=== PATIENT | male | born 1955 ===

== ENCOUNTER 2025-10-20 11:55 | Emergency (ER) | payer MEDICARE ==
[~2025-10-20] VITALS: Ht 177.8 cm; Wt 65.7 kg
[2025-10-20 12:10] VITALS: TEMP 98.3
--- NOTE | 2025-10-20 12:51 | Physician Documentation ---
History of Present Illness ~ Chief Complaint: Medical Clearance Stated Complaint: MED CLEARANCE Time Seen by MD: 12:15 OK to notify your PCP?: Yes Source: patient Mode of Arrival: POV Exam Limitations: no limitations HPI 70-year-old male who is here to get clearance to go to [facility]. He states he was already at [facility] earlier today and they recommended that he be seen here and evaluated so that he can skip going to a detox facility. Patient brought the handout from [facility] which has written on it to ask if we can clear him. Patient's last drink of alcohol was three days ago. He states prior to this he had a single drink and then he was sober for a few days as well. He denies any history of seizures. He denies hallucinations, delirium, nausea or vomiting. He states he has a slight tremor but otherwise does not notice any symptoms. Tetanus within 5 years?: Yes Medication Reconciliation Allergies: Coded Allergies: No Known Allergies (Unverified , 10/20/25) Past Medical History Past Medical History: No Pertinent History Past Surgical History: noncontributory Alcohol Use: Heavy Lives In: Home Review of Systems All Other Systems at this time: Reviewed and Negative Physical Exam Vital Signs: Temperature: 98.3, Source: Oral, Heart Rate: 60, Respiratory Rate: 19, BP: 110/73, Pulse Oximetry: 98, Weight: 65.700 Oxygen Flow Rate: 0 Physical Exam General Appearance: Alert, WD/WN. NAD. Good eye contact. thought process is appropriate. HEENT: NCAT, PERRL, EOMI. Neck: Supple, trachea midline. Cardiovascular: RRR. No m/r/g. Lungs: CTAB. Breathing unlabored Extremities: Normal inspection. No edema. Skin: Warm/dry, normal color Neurological: Alert and oriented x4, normal gait. Psychiatric: Affect congruent with mood. cn 2-12 intact. slight tremor noted left and right hand. Progress Results/Orders Results/Orders Vital Signs 10/20/25 12:10 Temp 98.3 Pulse 60 Resp 19 B/P (MAP) 110/73 Pulse Ox 98 O2 Flow Rate 0 Medical Decision Making Additional information obtaine: N/A Findings n/a Differential Dx:Considerations: Include: Intoxication-Alcohol, Intoxication- Other drug, Personality disorder, Substance abuse disorder, Acute delirium, Closed head injury, Cervical spine injury, Skull fracture, Fracture(s), Abrasion, Contusion, Foreign body, Hematoma, Laceration, Alcohol withdrawl syndrom, Encephalopathy, Hepatitis, Medically stable Departure Time of Disposition: 12:49 Disposition: 01 HOME / SELF CARE / HOMELESS Impression: Primary Impression: Alcoholism Condition: Stable Discharge Instructions: Medical Screening Exam Additional Instructions: You are cleared to participate in residential treatment and you do not require detox facility before coming into treatment. Referrals: NO PRIMARY CARE PROVIDER (PCP) Education Educated: Patient Educated regarding: diagnosis, treatment, need for follow up Signature Scribe Signature: x Attestation: QUINCY James Oct 20, 2025 12:51
[2025-10-20 13:21] VITALS: BP 114/73; PULSE 60; RESP 16; O2SAT 97
== END 2025-10-20 13:22 | disposition home or self-care (01) ==
LOC: ER 11:56
DX: F10.20 Alcohol dependence, uncomplicated (principal); Y90.9 Presence of alcohol in blood, level not specified
CPT/HCPCS: 99282